=== PATIENT | male | born 2000 | race Caucasian/White ===

== ENCOUNTER 2024-09-22 00:16 | Observation (INO) ==
[2024-09-22] MEDS: ONDANSETRON INJ 2 MG/ML 2 ML VIAL IV STA ×2 (00:37→02:56)
--- NOTE | 2024-09-22 00:51 | Emergency Department Note ---
Impression & Plan Nausea, vomiting, and diarrhea ED Provider Note NAME: RAFIA HOLT AGE: 24 SEX: Male INFORMANT: Patient ED PROVIDER(S): Christian Pope MD CHIEF COMPLAINT: Vomiting PLAN: Disposition: Admitted Outpatient prescription management: none Referral: None MEDICAL DECISION MAKING: Patient presented because of multiple episodes of vomiting. He had minimal abdominal discomfort on examination. Blood work was obtained. He had a leukocytosis on CBC. Chemistry panel was unremarkable. Patient was hydrated and treated with IV Zofran. He did have increased nausea and was given an additional dose of Zofran. Patient was monitored. Discussed imaging and patient initially declined. He had recurrence of symptoms and was given a dose of IV Phenergan. Discussed need for imaging to rule out significant causes and patient in agreement. No acute findings noted per radiology. Patient was doing somewhat better and went through p.o. challenge. He was holding his own and I discussed conservative management with discharge. Did order Phenergan home pack and outlined instructions for him. Patient had his IV pulled and then became very nauseated. He vomited again about 250 mL per nursing. IV was reestablished and patient was hydrated. He was ordered Reglan and Benadryl. Did discuss need for further evaluation and management in the hospital given his intractable nausea and vomiting. Patient in agreement. Consultation was made with Dr. Nils Louise of the [facility] service. Patient was evaluated in the ER for further management. Care/management discussed with: none Level of care consideration(s): After review of the information above and other included data, I feel the patient requires escalation of care to admission. Triage Nursing notes: reviewed and agree them. Vital Signs: reviewed and remarkable for no significant abnormalities Additional History obtained from: Patient's significant other. She had consumed the same food he did this evening and has not had any GI symptoms. Chronic Medical/Social Conditions affecting care: none Prior/ Outside/ External records reviewed: none Differential Diagnosis: Etiologies such as gastroenteritis, food borne illness, infections, appendicitis, diverticulitis, inflammatory bowel disease, GI bleed, biliary pathology, as well as others were entertained. Diagnostics, independently interpreted by me: ECG: none Cardiac Monitoring: Cardiac monitoring ordered by me: The patient was placed on continuous cardiac monitoring and observed. It revealed a normal sinus rhythm at 96 beats per minute without ectopy or evidence of dysrhythmia. Medical decision rules: none Imaging studies: CT imaging of the abdomen pelvis reveals no evidence of perforation or obstruction. Per radiology no evidence of appendicitis. HPI: 24 year old Male arrives for evaluation of nausea and vomiting. This started about 5 hours ago and is persisting. The patient also notes the following associated symptoms, Body aches and chills, runny nose. The patient has found no relieving factors. Patient did have some abdominal cramping that was a 3 out of 10 but that had resolved. Current pain is rated as 0/10. No travel or sick contacts. Pt denies LOC, headache, fevers, chills, diaphoresis, visual changes, neck pain, chest pain, breathing difficulties, back pain, melena, hematochezia, urinary symptoms, numbness, weakness, lymphadenopathy, rash, or other complaints. . PAST MEDICAL HISTORY: See Below, asthma PAST SURGICAL HISTORY: See Below, SOCIAL HISTORY: See Below, [employer] student HOME MEDICATIONS: See Below ALLERGIES: See Below VITALS: See Below PHYSICAL EXAMINATION: GENERAL: Awake, alert, uncomfortable-appearing, in no distress HENT: Normocephalic, atraumatic. Oropharynx unremarkable. EYES: Normal conjunctiva. Sclera non-icteric. NECK: Inspection normal. Non-tender. Supple. No nuchal rigidity. FROM. No masses. RESPIRATORY: Clear to auscultation. No wheezes. No rales. Normal respiratory effort. CARDIAC: Normal rate. Normal rhythm. No murmurs. No rubs. Extremities warm and well perfused. Pulses equal. No JVD. GI: Soft, non-distended. No tenderness to palpation. No rebound or guarding. No masses. RECTAL: Deferred. MUSCULOSKELETAL: Atraumatic. Chest examination reveals no tenderness. The back is symmetrical on inspection without obvious abnormality. There is no CVA tenderness to palpation. No joint edema. LOWER EXTREMITIES: Calves are equal size bilaterally and non-tender. No edema. No discoloration. NEURO: Normal sensorium. No sensory or motor deficits noted. SKIN: No rash or jaundice noted. PROCEDURES: none CRITICAL CARE: none OBSERVATION NOTE: none Past Med/Surg History Problem List (Updated 09/22/24 @ 06:06 by Christian Pope MD) Nausea, vomiting, and diarrhea (Acute) Upper respiratory symptom No significant past surgical history History of asthma Medical History History of asthma ADHD Depression Surgical History No significant past surgical history Social History (Updated 12/05/23 @ 14:23 by Hafsa Martinez LPN) Smoking Status: Never smoker Tobacco Type: E-cigarettes / Vaping Hx Alcohol Use: Yes Alcohol Intake Frequency: Monthly or Less Preferred Language: Arabic Feels Safe at Home: Yes Allergies Allergies Allergy/AdvReac Type Severity Reaction Status Date / Time No Known Allergies Allergy Unverified 12/05/23 14:23 Home Meds Home Medications Medication Instructions Recorded Confirmed albuterol sulfate 90 mcg/actuation 2 puff inhalation Q6H PRN 12/03/23 12/05/23 aerosol inhaler WHEEZING/SOB lisdexamfetamine 30 mg capsule 30 mg PO QAM 12/03/23 12/05/23 (Vyvanse) prednisone 20 mg tablet 40 mg PO DAILY PRN SOB 12/03/23 12/05/23 Previous Rx's Medication Instructions Recorded albuterol sulfate 2.5 mg/3 mL 2.5 mg (3 mL) inhalation Q6H PRN 12/03/23 (0.083 %) solution for nebulization bronchospasm #90 mL Results & Data (ED) Vital Signs Vital Signs - 24 hr 09/22/24 00:23 09/22/24 00:44 09/22/24 00:44 Temperature 36.5 C Temperature Source Temporal Artery Scan Pulse Rate 106 H Pulse Rate [Apical] 89 Respiratory Rate 18 20 Respiratory Effort / Characteristics Non-Labored Spontaneous Non-Labored Spontaneous Respiratory Depth Normal Normal Respiratory Pattern Regular Regular Blood Pressure 114/62 Blood Pressure [Left Arm] 127/70 Blood Pressure [Right Arm] Blood Pressure Mean 79 Blood Pressure Mean [Left Arm] 89 Blood Pressure Mean [Right Arm] Blood Pressure Position Sitting Pulse Oximetry 97 96 96 Oxygen Delivery Method Room Air Room Air Room Air Sepsis Recent Fever Within 48 Hours No Sepsis New/Unexplained Change in Mental Status N/A Sepsis Action Taken by Nursing No Action Required 09/22/24 00:50 09/22/24 02:20 09/22/24 04:35 Temperature Temperature Source Pulse Rate 96 H 95 H Pulse Rate [Apical] 96 H Respiratory Rate 16 Respiratory Effort / Characteristics Non-Labored Spontaneous Respiratory Depth Normal Respiratory Pattern Regular Blood Pressure Blood Pressure [Left Arm] 130/59 L Blood Pressure [Right Arm] Blood Pressure Mean Blood Pressure Mean [Left Arm] 82 Blood Pressure Mean [Right Arm] Blood Pressure Position Pulse Oximetry 97 Oxygen Delivery Method Room Air Sepsis Recent Fever Within 48 Hours Sepsis New/Unexplained Change in Mental Status Sepsis Action Taken by Nursing 09/22/24 04:39 09/22/24 06:14 09/22/24 06:23 Temperature 37.4 C Temperature Source Oral Pulse Rate 70 92 H Pulse Rate [Apical] 93 H Respiratory Rate 20 18 16 Respiratory Effort / Characteristics Non-Labored Spontaneous Respiratory Depth Normal Respiratory Pattern Regular Blood Pressure 108/48 L 124/68 Blood Pressure [Left Arm] 116/69 Blood Pressure [Right Arm] Blood Pressure Mean Blood Pressure Mean [Left Arm] 84 Blood Pressure Mean [Right Arm] Blood Pressure Position Pulse Oximetry 96 99 97 Oxygen Delivery Method Room Air Room Air Room Air Sepsis Recent Fever Within 48 Hours Sepsis New/Unexplained Change in Mental Status Sepsis Action Taken by Nursing 09/22/24 06:52 Temperature 37.5 C Temperature Source Oral Pulse Rate Pulse Rate [Apical] 95 H Respiratory Rate 20 Respiratory Effort / Characteristics Non-Labored Spontaneous Respiratory Depth Normal Respiratory Pattern Regular Blood Pressure Blood Pressure [Left Arm] Blood Pressure [Right Arm] 124/69 Blood Pressure Mean Blood Pressure Mean [Left Arm] Blood Pressure Mean [Right Arm] 87 Blood Pressure Position Pulse Oximetry 98 Oxygen Delivery Method Room Air Sepsis Recent Fever Within 48 Hours Sepsis New/Unexplained Change in Mental Status Sepsis Action Taken by Nursing Laboratory Data 09/22/24 00:37 09/22/24 00:37 Lab Results 09/22/24 09/22/24 Range/Units 00:37 02:17 WBC 12.18 H (4.8-10.8) K/ul RBC 5.50 (4.70-6.10) M/uL Hgb 15.9 (14.0-18.0) g/dl Hct 46.8 (42.0-52.0) % MCV 85.1 (80.0-100.0) fL MCH 28.9 (25.0-34.0) pg MCHC 34.0 (32.0-36.0) g/dL RDW Std Deviation 40.1 (36.4-46.3) fL RDW Coeff of Elena 12.9 (11.5-14.5) % Plt Count 230 (130-400) K/uL MPV 10.8 (9.4-12.4) fL Immature Gran % (Auto) 0.2 % Neut % (Auto) 87.1 % Lymph % (Auto) 5.8 % [place] % (Auto) 6.2 % Eos % (Auto) 0.5 % Baso % (Auto) 0.2 % Neut # (Auto) 10.60 H (1.40-6.50) K/uL Lymph # (Auto) 0.71 L (1.20-3.40) K/uL [place] # (Auto) 0.76 H (0.11-0.59) K/uL Eos # (Auto) 0.06 (0.00-0.50) K/uL Baso # (Auto) 0.02 (0.00-0.20) K/uL Immature Gran # (Auto) 0.03 (0.01-0.20) K/uL Sodium 138 (136-145) mmol/L Potassium 3.4 L (3.5-5.1) mmol/L Chloride 101 (98-107) mmol/L Carbon Dioxide 28 (21-32) mmol/L Anion Gap 9 (3-11) BUN 20 (6-23) mg/dl Creatinine 1.02 (0.6-1.4) mg/dl Est Cr Clr Drug Dosing 107.7 ml/min eGFR 105.91 BUN/Creatinine Ratio 19.6 (10-20) Glucose 134 H (70-99(Fasting)) mg/dl Calcium 9.4 (8.6-10.3) mg/dl Total Bilirubin 0.9 (0.2-1.0) mg/dl AST 26 (13-39) U/L ALT 32 (7-52) U/L Alkaline Phosphatase 82 (34-104) U/L Total Protein 7.3 (6.0-8.3) gm/dl Albumin 4.8 (3.4-5.0) gm/dl Globulin 2.5 (2.5-4.0) gm/dl Albumin/Globulin Ratio 1.9 (0.9-2) Lipase 23 (11-82) U/L Urine Color Yellow Urine Appearance Clear (Clear) Urine pH 5.5 (4.5-7.5) Ur Specific [place] 1.029 (1.000-1.030) Urine Protein Negative (Negative) Urine Glucose (UA) Negative (Negative) Urine Ketones 1+ H (Negative) Urine Blood Negative (Negative) Urine Nitrite Negative (Negative) Urine Bilirubin Negative (Negative) Urine Urobilinogen Negative (Negative) Ur Leukocyte Esterase Negative (Negative) Administered Medications Sodium Chloride (Nss) 1,000 mls @ 999 mls/hr IV .Q1H1M ONE Stop: 09/22/24 07:28 Last Admin: 09/22/24 06:45 Dose: 999 mls/hr Documented By: MARILYN Discontinued Medications Diphenhydramine HCl (Diphenhydramine 50 Mg/Ml Vial) 12.5 mg IV NOW STA Stop: 09/22/24 06:29 Last Admin: 09/22/24 06:48 Dose: 12.5 mg Documented By: MARILYN Sodium Chloride (Nss) 1,000 mls @ 999 mls/hr IV .Q1H1M ONE Stop: 09/22/24 01:51 Last Infusion: 09/22/24 02:22 Dose: Infused Documented By: Admin: 09/22/24 00:56 Dose: 999 mls/hr Documented By: DARYA Promethazine HCl (Phenergan) 12.5 mg in 50.5 mls @ 202 mls/hr IV NOW STA Stop: 09/22/24 03:27 Last Infusion: 09/22/24 03:38 Dose: Infused Documented By: Admin: 09/22/24 03:22 Dose: 202 mls/hr Documented By: MARILYN Famotidine (Pepcid 20mg Iv Push) 20 mg in 5 mls @ 2.5 mls/min IV NOW STA Stop: 09/22/24 06:29 Last Admin: 09/22/24 06:46 Dose: 2.5 mls/min Documented By: MARILYN Ioversol (Optiray 320 100ml) 100 ml IV ONCE ONE Stop: 09/22/24 04:01 Last Admin: 09/22/24 04:00 Dose: 93 ml Documented By: HARMONY Metoclopramide HCl (Metoclopramide Hcl Inj 5 Mg/Ml 2 Ml Vial) 5 mg IV ONE ONE Stop: 09/22/24 06:29 Last Admin: 09/22/24 06:49 Dose: 5 mg Documented By: MARILYN Ondansetron HCl (Ondansetron Inj 2 Mg/Ml 2 Ml Vial) 4 mg IV NOW STA Stop: 09/22/24 00:24 Last Admin: 09/22/24 00:37 Dose: 4 mg Documented By: MARILYN Ondansetron HCl (Ondansetron Inj 2 Mg/Ml 2 Ml Vial) 4 mg IV NOW STA Stop: 09/22/24 02:46 Last Admin: 09/22/24 02:56 Dose: 4 mg Documented By: MARILYN Promethazine HCl (Phenergan 25mg Homepack) 1 each PO UD ONE Stop: 09/22/24 05:59 Last Admin: 09/22/24 06:19 Dose: 1 each Documented By: MARILYN Imaging Data Radiologist's Impression: Abdomen/Pelvis CT 09/22/24 02:45 EXAM: CT abd pelvis IV con only CLINICAL HISTORY: 93 ML OPTIRAY 320, PAIN AT MID ABD WITH VOMITING TECHNIQUE: Contrast-enhanced CT of the abdomen and pelvis was performed, with the following protocol: axial images with, and reconstructed coronal and sagittal images. 93ml optiray 320 Intravenous contrast was administered. One of the following dose reduction techniques was utilized for this exam: Automated exposure control, adjustment of the mA and/or kV according to patient size, and use of iterative reconstruction. COMPARISON: None. FINDINGS: Liver: Normal in size, shape, and density. No focal lesions, cysts, or masses were identified. Hepatic vasculature and biliary ducts are unremarkable. Gallbladder and Biliary System: The gallbladder is normal in size and shape. No wall thickening, pericholecystic fluid, or gallstones were identified. The common bile duct is normal in caliber without dilation. Pancreas: Pancreatic head, body, and tail are visualized and appear normal in size and density. No pancreatic masses or calcifications were noted. The pancreatic duct is not dilated. Spleen: Normal in size, shape, and density. No splenic lesions or masses were identified. Kidneys and Adrenal Glands: Both kidneys are normal in size, shape, and position. Cortical thickness is within normal limits. No renal calculi or hydronephrosis. Adrenal glands are unremarkable with no evidence of masses or hyperplasia. Pelvis: Urinary Bladder: Normal in contour and wall thickness. No intraluminal lesions identified. Prostate: Normal in size and contour. No focal lesions or masses identified. Seminal Vesicles: Normal in size and appearance. No abnormalities noted. Rectum and Sigmoid Colon: Normal wall thickness and no evidence of mass. Peritoneal and Retroperitoneal Structures: No free fluid or abnormal fluid collections were identified within the abdomen or pelvis. No lymphadenopathy was noted. Bowel: The visualized bowel loops are normal in caliber and appearance. No ct evidence of acut appendicitis No evidence of bowel obstruction or wall thickening. Bones and Soft Tissues: Pelvic bones and soft tissues are unremarkable. No fractures or abnormal masses were identified. IMPRESSION: No acute avbormality seen. Electronically signed by Matthew Mathis 09-22-2024 05:17 AM Discharge Plan Visit Data Chief Complaint: Vomiting Stated Complaint: VOMITING X 5 HRS,DEHYDRATION ED Provider: Christian Pope Discharge Problem: Nausea, vomiting, and diarrhea Patient Disposition: Home - Self-Care Discharge Instructions Krames/Other Patient Handouts: ED [facility] Abdominal Pain, ED [facility] Vomiting Activity Restrictions/Additional Instructions: VOMITING INSTRUCTIONS: DO NOT drive, drink alcohol, operate machinery, or perform dangerous activities today. You were given medications in the ER that can affect your ability to safely function or operate a vehicle. Phenergan(promethazine) tablets 25mg: Take one every six hours as needed for nausea. Avoid alcohol, operating machinery or dangerous equipment, working on ladders or roofs, DRIVING, or situations where being under the influence may be dangerous. Ibuprofen(Motrin, Advil) may be used for fever or pain. Use 600mg every six hours as needed. Take with food. Avoid using more than 2400mg in a 24 hour period. Do not use 2400mg per day for more than three consecutive days without physician direction. Prolonged inappropriate use can lead to stomach upset or ulcers. (AND/OR) Acetaminophen(Tylenol) may be used for fever or pain. Use 1000mg every six hours as needed. Avoid using more than 3000mg in a 24 hour period. Rest and drink plenty of fluids as tolerated. Slow sips of water or sports drinks are recommended instead of large amounts all at once. Continue current medications. Once your stomach is settled start with a clear liquid diet (jello, soup broth, etc.) and then advance as tolerated. You should avoid full, heavy meals for about 24 hrs from the time your symptoms resolved. Return to the ER for persistent vomiting, fevers, abdominal pain, chest pains, difficulty breathing, black or bloody stools, worsening of your condition, or as needed. Follow up with S in 1-2 days for a recheck of your current condition Interventions: ED Discharge Assessment Last Done: 09/22/24 06:23 Forms Stand Alone Forms: Work/School Release (ED), My [facility], Important Visit Information Prescriptions Prescriptions: No Action prednisone 20 mg Tablet 40 mg PO DAILY PRN (Reason: SOB) albuterol sulfate 90 mcg/actuation Hfa Aerosol Inhaler 2 puff INHALATION Q6H PRN (Reason: WHEEZING/SOB) lisdexamfetamine [Vyvanse] 30 mg Capsule 30 mg PO QAM albuterol sulfate 2.5 mg /3 mL (0.083 %) solution for nebulization 2.5 mg inhalation Q6H PRN (Reason: bronchospasm) Qty: 90 0RF Referrals [facility]errals: [facility] [Primary Care Provider] -
[2024-09-22] MEDS: SODIUM CHLORIDE 0.9% 1,000 ML IV ONE ×2 (00:56→06:45)
[2024-09-22 01:31] LABS: Basophils # (auto) 0.02 K/uL (0.00-0.20); Basophils % (auto) 0.2 %; Eosinophils # (auto) 0.06 K/uL (0.00-0.50); Eosinophils % (auto) 0.5 %; Hematocrit (blood only) 46.8 % (42.0-52.0); Hemoglobin 15.9 g/dl (14.0-18.0); Immature Granulocytes # (auto) 0.03 K/uL (0.01-0.20); Immature Granulocytes % (auto) 0.2 %; Lymphocytes # (auto) 0.71 K/uL (1.20-3.40); Lymphocytes % (auto) 5.8 %; Mean Corpuscular Hemoglobin 28.9 pg (25.0-34.0); Mean Corpuscular Volume 85.1 fL (80.0-100.0); Mean Platelet Volume 10.8 fL (9.4-12.4); Monocytes # (auto) 0.76 K/uL (0.11-0.59); Monocytes % (auto) 6.2 %; Neutrophils % (auto) 87.1 %; Platelet Count 230 K/uL (130-400); RDW Coefficient of Variation 12.9 % (11.5-14.5); RDW Standard Deviation 40.1 fL (36.4-46.3); White Blood Count 12.18 K/ul (4.8-10.8)
[2024-09-22 01:48] LABS: Albumin Level 4.8 gm/dl (3.4-5.0); Bilirubin,Total 0.9 mg/dl (0.2-1.0); Calcium 9.4 mg/dl (8.6-10.3); Potassium 3.4 mmol/L (3.5-5.1)
[2024-09-22 01:55] LABS: Albumin Globulin Ratio 1.9 (0.9-2); BUN Creatinine Ratio 19.6 (10-20); Creatinine Clr Calc Pharmacy 107.7 ml/min; Globulin 2.5 gm/dl (2.5-4.0); Total Protein 7.3 gm/dl (6.0-8.3)
[2024-09-22 02:27] LABS: Appearance Urine Clear (Clear); Bilirubin Urine Negative (Negative); Blood Urine Negative (Negative); Color Urine Yellow; Glucose Urine UA Negative (Negative); Ketones Urine 1+ (Negative); Leukocyte Esterase Urine Negative (Negative); Nitrite Urine Negative (Negative); Protein Urine Negative (Negative); Specific Gravity Urine 1.029 (1.000-1.030); Urobilinogen Urine Negative (Negative); pH Urine 5.5 (4.5-7.5)
[2024-09-22] MEDS: PROMETHAZINE 12.5 MG/50.5 ML BAG IV STA (03:22)
[2024-09-22] MEDS: OPTIRAY 320 100ml IV ONE (04:00)
--- NOTE | 2024-09-22 05:17 | CT Scan Report ---
EXAM: CT abd pelvis IV con only CLINICAL HISTORY: 93 ML OPTIRAY 320, PAIN AT MID ABD WITH VOMITING TECHNIQUE: Contrast-enhanced CT of the abdomen and pelvis was performed, with the following protocol: axial images with, and reconstructed coronal and sagittal images. 93ml optiray 320 Intravenous contrast was administered. One of the following dose reduction techniques was utilized for this exam: Automated exposure control, adjustment of the mA and/or kV according to patient size, and use of iterative reconstruction. COMPARISON: None. FINDINGS: Liver: Normal in size, shape, and density. No focal lesions, cysts, or masses were identified. Hepatic vasculature and biliary ducts are unremarkable. Gallbladder and Biliary System: The gallbladder is normal in size and shape. No wall thickening, pericholecystic fluid, or gallstones were identified. The common bile duct is normal in caliber without dilation. Pancreas: Pancreatic head, body, and tail are visualized and appear normal in size and density. No pancreatic masses or calcifications were noted. The pancreatic duct is not dilated. Spleen: Normal in size, shape, and density. No splenic lesions or masses were identified. Kidneys and Adrenal Glands: Both kidneys are normal in size, shape, and position. Cortical thickness is within normal limits. No renal calculi or hydronephrosis. Adrenal glands are unremarkable with no evidence of masses or hyperplasia. Pelvis: Urinary Bladder: Normal in contour and wall thickness. No intraluminal lesions identified. Prostate: Normal in size and contour. No focal lesions or masses identified. Seminal Vesicles: Normal in size and appearance. No abnormalities noted. Rectum and Sigmoid Colon: Normal wall thickness and no evidence of mass. Peritoneal and Retroperitoneal Structures: No free fluid or abnormal fluid collections were identified within the abdomen or pelvis. No lymphadenopathy was noted. Bowel: The visualized bowel loops are normal in caliber and appearance. No ct evidence of acut appendicitis No evidence of bowel obstruction or wall thickening. Bones and Soft Tissues: Pelvic bones and soft tissues are unremarkable. No fractures or abnormal masses were identified. IMPRESSION: No acute avbormality seen. Electronically signed by Matthew Mathis 09-22-2024 05:17 AM
[2024-09-22] MEDS: PHENERGAN 25MG HOMEPACK PO ONE (06:19)
[2024-09-22] MEDS: FAMOTIDINE 20MG IV PUSH 20 MG/5 ML SYR IV STA (06:46)
[2024-09-22] MEDS: diphenhydrAMINE 50 MG/ML VIAL IV STA (06:48)
[2024-09-22] MEDS: METOCLOPRAMIDE HCL INJ 5 MG/ML 2 ML VIAL IV ONE (06:49)
[2024-09-22 07:53] LABS: Amphetamines+Metham, Urine Pos (Neg); Barbiturates, Urine Neg (Neg); Benzodiazepine, Urine Neg (Neg); Cocaine, Urine Neg (Neg); Fentanyl, Urine Neg (Neg); MDMA (Ecstacy), Urine Neg (Neg); Marijuana, Urine Neg (Neg); Methadone, Urine Neg (Neg); Opiate, Urine Neg (Neg); Phencyclidine, Urine Neg (Neg)
[2024-09-22] MEDS ORDERED: ALBUTEROL 0.083% NEBU SOLN 3 ML VIAL INH PRN (09:22)
[2024-09-22] MEDS ORDERED: ACETAMINOPHEN 325 MG TAB PO PRN (09:22)
[2024-09-22] MEDS ORDERED: ONDANSETRON INJ 2 MG/ML 2 ML VIAL IV PRN (09:22)
[2024-09-22] MEDS ORDERED: PROMETHAZINE 12.5 MG/50.5 ML BAG IV PRN (09:22)
[2024-09-22] MEDS ORDERED: ALBUTEROL HFA 8 GM INHALER INH PRN (09:22)
[2024-09-22] MEDS: POTASSIUM CHLORIDE 40 MEQ in SODIUM CHLORIDE 0.9% 1,000 ML IV SCH (11:14)
--- NOTE | 2024-09-22 15:30 | History & Physical Report ---
Date of Service September 22, 2024 Assessment & Plan (1) Nausea, vomiting, and diarrhea: Plan: Intractable nausea and vomiting. Diarrhea was not produced so cannot do stool PCR urine tox screen negative for cannabis positive for amphetamines but does take medicines for ADHD Improved with conservative management patient is discharged home in the care of his significant other Admission and Anticipated Discharge Date Admission Date: September 22, 2024 History of Present Illness Chief Complaint: 24-year-old male admitted with intractable nausea and vomiting after eating [place] food. He was hydrated and given antiemetics in the emergency department but attempted to leave he vomited again. He was then kept for observation continue with hydration laboratory studies and CT scan of the abdomen did not show any significant abnormalities with exception of mild hypokalemia which was replete with potassium containing IV fluids Primary Care Provider: [facility] Allergies Allergy/AdvReac Type Severity Reaction Status Date / Time No Known Allergies Allergy Unverified 09/22/24 09:20 Home Medications Medication Instructions Recorded Confirmed Type lisdexamfetamine 30 mg capsule 30 mg PO QAM 12/03/23 09/22/24 History (Vyvanse) Past Med/Surg History Problem List (Updated 09/22/24 @ 06:06 by Christian Pope MD) Nausea, vomiting, and diarrhea (Acute) Upper respiratory symptom No significant past surgical history History of asthma Medical History History of asthma ADHD Depression Surgical History No significant past surgical history Social History (Updated 12/05/23 @ 14:23 by Hafsa Martinez LPN) Smoking Status: Never smoker Tobacco Type: E-cigarettes / Vaping Second Hand Exposure: No; Do You Dip or Chew Tobacco: No; Tobacco Cessation Education Requested by Patient: No Hx Alcohol Use: Yes Alcohol type: beer, wine and hard liquor Alcohol Intake Frequency: Monthly or Less Hx Substance Use: No Preferred Language: Palestinian Communication Ability: Effective Glucose And Syrup Weigher Required: No Beliefs That Will Affect Care: None Current Living Situation Comment: house on campus Other Information That Helps Us Care for You: No Feels Safe at Home: Yes Safety Concerns: Feels Safe At This Time Assistive Devices: Glasses Physical Exam Physical Exam: Patient is awake alert appropriate. Card exam is regular lungs are clear abdomen NABS soft mildly tender epigastrium Results & Data Results & Data Vital Signs (Past 12 Hours) Vital Signs Temp Pulse Pulse Resp BP BP BP 09/22/24 14:42 99.5 F 94 H 18 127/61 09/22/24 12:00 90 18 112/82 09/22/24 11:04 88 16 114/61 09/22/24 09:00 92 H 20 119/54 L 09/22/24 06:52 99.5 F 95 H 20 124/69 09/22/24 06:23 99.3 F 92 H 16 124/68 09/22/24 06:14 70 18 108/48 L 09/22/24 04:39 93 H 20 116/69 09/22/24 04:35 95 H Pulse Ox O2 Del Method 09/22/24 14:42 97 09/22/24 12:00 97 Room Air 09/22/24 11:04 98 Room Air 09/22/24 09:00 96 Room Air 09/22/24 06:52 98 Room Air 09/22/24 06:23 97 Room Air 09/22/24 06:14 99 Room Air 09/22/24 04:39 96 Room Air 09/22/24 04:35 Code Status & VTE Plan VTE Prophylaxis Plan VTE Prophylaxis will be ordered: Yes PG Care Time/CCT Total # of Minutes Spent Total Time Spent with Patient: Total time spent is greater than 50% in coordination of care (as documented) at patient's floor/unit and/or counseling patient: Coding Level of Care Code 27065 INT INP/OBS CARE 2/55MIN Diagnoses Nausea, vomiting, and diarrhea R11.2; R19.7 Comment Discharge admission same day
--- NOTE | 2024-09-22 15:34 | Discharge Summary ---
Discharge Summary Date of Service September 22, 2024 Principal Dx & Hospital Course #1 = Principal Diagnosis (1) Nausea, vomiting, and diarrhea: Intractable nausea and vomiting. Diarrhea was not produced so cannot do stool PCR urine tox screen negative for cannabis positive for amphetamines but does take medicines for ADHD Improved with conservative management patient is discharged home in the care of his significant other Notes For Next Care Provider Patient visit on 2 occasions improved after hydration able to be discharged home Discharge Exam Patient is awake alert appropriate. Card exam is regular lungs are clear abdomen NABS soft mildly tender epigastrium Discharge Plan Discharge Items Patient Disposition: Home - Self-Care Reason For Visit: INTRACTABLE VOMITING Discharge Diagnosis: intractable nausea and vomiting resolved Activity: Resume your previous activity Non-emergency contact: Primary Care Provider Call non-emergency contact if: your symptoms worsen Follow-up/Referrals: [facility] [Primary Care Provider] - Diet: Regular Addtl Attending Provider Instructions: eat a bland diet, plenty of fluids, avoid spicey or hot foods consider taking some over the counter pepcid( famotidine) if you have stomach upset use your antinausea medicine given to you by the ER as needed Pending Studies at Discharge: No Stand-Alone Forms: [facility] [employer], Smoking Cessation Medications and DC Order Prescriptions: Continued lisdexamfetamine [Vyvanse] 30 mg Capsule 30 mg PO QAM Discharge Orders: Discharge Order (Routine); Ordered 09/22/24 Ordered By: Nils Louise Admission Data Admit Date/Time: 09/22/24 07:16 Attending Provider: Nils Louise Admit Provider: Nils Louise Primary Care Provider: [facility] Other Providers: Nils Louise Other Interventions: Discharge Summary Assessment (RN) Last Done: 09/22/24 14:42 Hospital Stay Data Consultations 09/22/24 06:50 ED Decision to Admit Stat Diagnostic Imagining Performed 09/22/24 02:45 CT Abd and Pelvis [CT abd pelvis IV con only] Stat Pending Results Patient Have Any Pending Studies at Discharge: No Discharge Instructions Given to Patient (Per Discharging Provider) eat a bland diet, plenty of fluids, avoid spicey or hot foods consider taking some over the counter pepcid( famotidine) if you have stomach upset use your antinausea medicine given to you by the ER as needed Total Time Total Time Spent Total Time Spent (In Minutes): It required greater than 30 minutes to prepare this patient for discharge. Coding Level of Care Code INP/OBS EV SAME DAY LV 2,70MIN Diagnoses Nausea, vomiting, and diarrhea R11.2; R19.7
[2024-09-24 12:03] LABS: Amphetamine Urine, Confirm 4024 ng/mL (<250); Methamphetamine, Ur Confirm NEGATIVE ng/mL (<250)
== END 2024-09-22 14:46 | disposition home or self-care (01) ==
LOC: SUATTDRO → EDINP 00:16 → ED 00:16 → EDINP 09:21